=== PATIENT | male | born 1995 | race Caucasian/White ===

== ENCOUNTER 2019-06-05 12:11 | Emergency (ER) | payer MEDICAID, OTHER ==
[2019-06-05 12:27] VITALS: BP 112/65; PULSE 92; O2SAT 97
--- NOTE | 2019-06-05 12:37 | ERPHSYRPT ---
- History of Present Illness Time Seen by Provider: 06/05/19 12:30 Source: patient Exam Limitations: no limitations Patient Subjective Stated Complaint: "My right ear has been bothering me for past week and awakened this am with my ear feeling like it is blocked up". Triage Nursing Assessment: Aaox3, color good, resp easy, lungs clear, walked in. c/o right ear pain and feeling of fullness or liquid in right ear. Pt states has been using otc ear gtts. States has been using q tips also. Physician History: Blocked - muffled feeling sensation R ear X 1 Day. Timing/Duration: gradual onset (over 1 week - worsening today) Severity: moderate ENT Location: ear (R) Prearrival Treatment: no prearrival treatment Modifying Factors: Improves With: nothing Associated Symptoms: denies symptoms Allergies/Adverse Reactions: No Known Drug Allergies Allergy (Unverified 07/15/12 08:55) Hx Tetanus, Diphtheria Vaccination/Date Given: Yes Hx Influenza Vaccination/Date Given: No Hx Pneumococcal Vaccination/Date Given: No - Review of Systems Constitutional: No Symptoms Eyes: No Symptoms Ears, Nose, & Throat: Ear Pain (Right), Hearing Changes (muffled), No Ear Discharge, No Nose Congestion, No Nose Discharge, No Sinus Drainage, No Mouth Pain, No Throat Pain, No Hoarse, No Painful Swallowing Respiratory: No Symptoms All Other Systems: Reviewed and Negative - Past Medical History Pertinent Past Medical History: No Neurological History: No Pertinent History ENT History: No Pertinent History Cardiac History: No Pertinent History Respiratory History: No Pertinent History Endocrine Medical History: No Pertinent History Musculoskeletal History: Fractures GI Medical History: No Pertinent History History: No Pertinent History Psycho-Social History: No Pertinent History Male Reproductive Disorders: No Pertinent History Other Medical History: broken femur - Past Surgical History Past Surgical History: Yes Neuro Surgical History: No Pertinent History Cardiac: No Pertinent History Respiratory: No Pertinent History Gastrointestinal: No Pertinent History Genitourinary: No Pertinent History Musculoskeletal: Orthopedic Surgery Male Surgical History: No Pertinent History Other Surgical History: lt femur surgery at 4yo - Social History Smoking Status: Former smoker How long have you smoked: 4yrs Exposure to second hand smoke: Yes Drug Use: marijuana Patient Lives Alone: Yes - Nursing Vital Signs Nursing Vital Signs: Initial Vital Signs Temperature 98.0 F 06/05/19 12:20 Pulse Rate 92 H 06/05/19 12:20 Respiratory Rate 16 06/05/19 12:20 Blood Pressure 112/65 06/05/19 12:20 O2 Sat by Pulse Oximetry 97 06/05/19 12:20 Pain Scale Pain Intensity 6 - Physical Exam General Appearance: no apparent distress Eye Exam: bilateral eye: normal inspection, PERRL, EOMI Ear Exam: right ear: swelling (ext ), TM red, TM bulging, left ear: auricle normal, canal normal, TM normal Nasal Exam: normal inspection Throat Exam: normal, pharynx normal Neck Exam: normal inspection, non-tender, supple, No lymphadenopathy (R), No lymphadenopathy (L) Skin Exam: normal color, warm, dry SpO2 Interpretation: normal SpO2: 97 O2 Delivery: Room Air - Course Nursing assessment & vital signs reviewed: Yes - Departure Departure Disposition: Home Clinical Impression: Otitis media Qualifiers: Otitis media type: suppurative Chronicity: acute Laterality: right Recurrence: non-recurrent Spontaneous tympanic membrane rupture: without spontaneous rupture Qualified Code(s): H66.001 - Acute suppurative otitis media without spontaneous rupture of ear drum, right ear Condition: Good Critical Care Time: No Referrals: MARLO HENDERSON MD [Primary Care Provider] - Instructions: Ear Infections (Otitis Media) Prescriptions: Neomyc/Colist/Hydrocort/Thonzn [Cortisporin-Tc Ear Suspension] 10 ml OT QID #1 drops.susp
== END 2019-06-05 13:05 | disposition home or self-care (01) ==
LOC: ED 12:11
DX: H66.001 Acute suppurative otitis media without spontaneous rupture of ear drum, right ear (principal)
CPT/HCPCS: 99283

== ENCOUNTER 2021-04-18 22:04 | Emergency (ER) | payer MEDICAID ==
[2021-04-18] MEDS ORDERED: XYLOCAINE 1% HCL 20 ML MDV IJ ONE (22:05)
[2021-04-18 22:22] VITALS: O2SAT 99
[2021-04-18] MEDS ORDERED: ROCEPHIN 250 MG INJ IM ONE (22:35)
[2021-04-18] MEDS ORDERED: Zithromax 250 MG TABLET PO ONE (22:35)
--- NOTE | 2021-04-18 22:38 | ERPHSYRPT ---
- History of Present Illness Source: patient Exam Limitations: no limitations Patient Subjective Stated Complaint: Patient states " for about a month now I have been waking up with milky discharge at the head of my penis. It has also been burning when I finish peeing also. I also have been experiencing pain prior to having intercourse and I want to be tested for STD's." Triage Nursing Assessment: Patient arrived to ED and ambulated back to room without difficulty. Patient A/O Physician History: The patient is a 25-year-old male who reportedly is otherwise healthy presents with a chief complaint of penile discharge and dysuria. Onset reported as a month ago. He states that he notices a white milky discharge more so on pneumonia and upon waking up to urinate for the first time in the morning. He also endorsed having some dysuria intermittently for the past month as well and suprapubic abdominal pain that is since resolved. He endorsed some intermittent testicular pain but denies swelling, erythema and currently has no testicular pain now. Of note, the patient presents to the emergency department with his fiance is well. The fianc is here for vaginal bleeding and concern for and is also being evaluated for an STD. He reports that they introduced to additional sexual partners into their sex life over the past month. The patient also endorsed having anal intercourse with his fiance. He denies any hematuria, fever, chills, nausea or vomiting or any rash. Allergies/Adverse Reactions: No Known Drug Allergies Allergy (Unverified 04/18/21 22:17) Hx Tetanus, Diphtheria Vaccination/Date Given: Yes Hx Influenza Vaccination/Date Given: No Hx Pneumococcal Vaccination/Date Given: No Immunizations Up to Date: Yes Travel Risk - International Travel Have you traveled outside of the country in past 3 weeks: No - Coronavirus Screening Are you exhibiting any of the following symptoms?: No Close contact with a COVID-19 positive Pt in past 14-21 Days: No - Vaccine Status Have you recieved a Covid-19 vaccination: No - Review of Systems Constitutional: No Fever, No Chills Abdominal/Gastrointestinal: Abdominal Pain (Intermittent suprapubic abdominal pain) Genitourinary Symptoms: Dysuria, Frequency, Testicle Pain, Penile Discharge - Past Medical History Pertinent Past Medical History: No Neurological History: No Pertinent History ENT History: No Pertinent History Cardiac History: No Pertinent History Respiratory History: No Pertinent History Endocrine Medical History: No Pertinent History Musculoskeletal History: Fractures GI Medical History: No Pertinent History History: No Pertinent History Psycho-Social History: Anxiety, Depression Male Reproductive Disorders: No Pertinent History Other Medical History: broken femur - Past Surgical History Past Surgical History: Yes Neuro Surgical History: No Pertinent History Cardiac: No Pertinent History Respiratory: No Pertinent History Gastrointestinal: No Pertinent History Genitourinary: No Pertinent History Musculoskeletal: Orthopedic Surgery Male Surgical History: No Pertinent History Other Surgical History: HX Left Femur Surgery at 4yo - Social History Smoking Status: Former smoker How long have you smoked: 4yrs Exposure to second hand smoke: Yes Drug Use: marijuana Patient Lives Alone: No - Nursing Vital Signs Nursing Vital Signs: Initial Vital Signs Temperature 98.5 F 04/18/21 22:19 Pulse Rate 97 H 04/18/21 22:19 Respiratory Rate 20 04/18/21 22:19 Blood Pressure 135/88 04/18/21 22:19 O2 Sat by Pulse Oximetry 99 04/18/21 22:19 Pain Scale Pain Intensity 0 - Physical Exam General Appearance: no apparent distress Eye Exam: PERRL/EOMI, No scleral icterus Neck Exam: normal inspection, non-tender Respiratory Exam: normal breath sounds, lungs clear, airway intact, No chest tenderness, No respiratory distress Cardiovascular Exam: regular rate/rhythm, normal heart sounds, normal peripheral pulses, capillary refill <2 sec, No murmur, No friction rub, No gallop Gastrointestinal/Abdomen Exam: soft, No tenderness Male Genitalia Exam: penile discharge, other (A scant amount of mucopurulent discharge upon squeezing the penile meatus. There is no pain this ulcerative lesions or during asymmetric testicular swelling, erythema or mass and there is no tenderness upon palpation of the epididymis. Mons pubis or just to the this.), No testicular tenderness, No testicular mass, No penile lesion, No priapism Back Exam: normal inspection Extremity Exam: normal inspection Neurologic Exam: alert, oriented x 3, cooperative Skin Exam: normal color, warm SpO2 Interpretation: normal SpO2: 99 O2 Delivery: Room Air Ordered Tests: Active Orders 24 hr Category Date Time Status UA W/RFX UR CULTURE Stat Lab 04/18/21 23:47 Completed Wet Prep Stat Lab 04/18/21 22:35 Ordered Medication Summary Discontinued Medications Generic Name Dose Route Start Last Admin Trade Name Freq PRN Reason Stop Dose Admin Azithromycin 1,000 mg 04/18/21 22:35 04/18/21 23:34 Zithromax 250 Mg Tablet PO 04/18/21 22:36 1,000 mg STAT ONE Administration Azithromycin Confirm 04/18/21 23:25 Zithromax 250 Mg Tablet Administered 04/18/21 23:26 Dose 1,000 mg .ROUTE .STK-MED ONE Ceftriaxone Sodium 500 mg 04/18/21 22:35 04/18/21 23:30 Rocephin 250 Mg Inj IM 04/18/21 22:36 Not Given STAT ONE Ceftriaxone Sodium Confirm 04/18/21 23:25 Rocephin 500 Mg Inj Administered 04/18/21 23:26 Dose 500 mg .ROUTE .STK-MED ONE Ceftriaxone Sodium 500 mg 04/18/21 23:35 04/18/21 23:40 Rocephin 500 Mg Inj IM 04/18/21 23:36 500 mg STAT ONE Administration Lab/Rad Data: Laboratory Results 04/18/21 04/18/21 Range/Units 23:47 22:42 Urine Color STRAW (YELLOW) Urine Appearance CLEAR (CLEAR) Urine pH 6.0 (5-6) Ur Specific Paulina 1.014 (1.005-1.025) Urine Protein NEGATIVE (Negative) Urine Ketones NEGATIVE (NEGATIVE) Urine Blood NEGATIVE (0-5) Kodi/ul Urine Nitrite NEGATIVE (NEGATIVE) Urine Bilirubin NEGATIVE (NEGATIVE) Urine Urobilinogen NEGATIVE (0-1) mg/dL Ur Leukocyte Esterase NEGATIVE (NEGATIVE) Urine WBC (Auto) 6-10 (0-5) /HPF Urine RBC (Auto) NONE (0-2) /HPF U Epithel Cells (Auto) NONE (FEW) /HPF Urine Bacteria (Auto) NONE SEEN (NEGATIVE) /HPF Urine Mucus (Auto) SLIGHT (NEGATIVE) /HPF Urine Culture Reflexed NO (NO) Urine Glucose NEGATIVE (NEGATIVE) mg/dL Chlamydia DNA Probe DETECTED (NEGATIVE) N.gonorrhoeae DNA Probe NOT DETECTED (NEGATIVE) - Progress Progress: unchanged Progress Note: 04/19/21 00:06 I updated the patient with his work-up findings and that his GC and chlamydia is currently pending. He was also informed he would be contacted if he tested positive for gonorrhea or chlamydia. He understands that he will need to take Levaquin for the next 7 days given that he endorsed having anal intercourse and will need to be covered for enteric organisms for his diagnosis of urethritis. To follow-up with the [facility] department to undergo more comprehensive testing for STDs and blood-borne pathogens. 04/18/21 23:00 Nontoxic in appearance. The patient presents with penile discharge and dysuria with intermittent suprapubic abdominal pain and testicular pain. He had no evidence of epididymitis on his exam nor does he have any evidence of testicular torsion. His complaint and exam is consistent with urethritis and given his clinical history I am concerned that this may be due to gonorrhea, chlamydia or trichomonas. He opted to undergo empiric treatment for gonorrhea chlamydia with ceftriaxone and azithromycin last test results are pending. Anal intercourse with his fiance he will also need to be covered with Levaquin for enteric organisms for his complaint of urethritis as well. 04/19/21 01:08 The patient has been called and notified that he tested positive for chlamydia. Counseled pt/family regarding: lab results, diagnosis, need for follow-up - Departure Departure Disposition: Home Clinical Impression: Screening for STD (sexually transmitted disease), Chlamydia infection Condition: Stable Critical Care Time: No Referrals: DOCTOR,NO FAMILY [Primary Care Provider] - Instructions: Urethritis, Screening for Sexually Transmitted Infections Additional Instructions: Please avoid sexual intercourse for the next 72 hours. If you test positive for gonorrhea or chlamydia, please inform your partners so here she can undergo testing and treatment. Please use protection in the form of condoms with any future episodes of sexual intercourse. Please follow-up with the [facility] department to undergo more comprehensive testing for sexually transmitted diseases and blood-borne infections. Specific, HIV, chlamydia, and syphilis. Prescriptions: Levofloxacin [Levofloxacin 500 MG Tablet] 500 mg PO DAILY 7 Days #7 tablet
[2021-04-18] MEDS ORDERED: Rocephin 500 MG INJ ONE (23:25)
[2021-04-18] MEDS ORDERED: Zithromax 250 MG TABLET ONE (23:25)
[2021-04-18] MEDS ORDERED: Rocephin 500 MG INJ IM ONE (23:35)
[2021-04-18 23:52] LABS: Appearance CLEAR (CLEAR); Bacteria NONE SEEN /HPF (NEGATIVE); Bilirubin NEGATIVE (NEGATIVE); Blood NEGATIVE Ery/ul (0-5); Glucose NEGATIVE (NEGATIVE); Ketones NEGATIVE (NEGATIVE); Leukocyte Esterase NEGATIVE (NEGATIVE); Mucus SLIGHT /HPF (NEGATIVE); Nitrite NEGATIVE (NEGATIVE); Protein,Urine Dip NEGATIVE (Negative); Specific Gravity 1.014 (1.005-1.025); Urobilinogen NEGATIVE mg/dL (0-1)
[2021-04-19 00:15] VITALS: BP 133/79; PULSE 85
[2021-04-19 00:18] LABS: CHLAMYDIA DNA DETECTED (NEGATIVE); GC DNA Probe NOT DETECTED (NEGATIVE)
== END 2021-04-19 00:15 | disposition home or self-care (01) ==
LOC: ED 22:04
DX: Z11.3 Encounter for screening for infections with a predominantly sexual mode of transmission (principal); A74.9 Chlamydial infection, unspecified
CPT/HCPCS: 81001; 87491; 87591; 96372; 99284; J0696; A9270-GY

== ENCOUNTER 2022-03-09 20:12 | Emergency (ER) | payer OTHER ==
[2022-03-09 20:46] VITALS: BP 129/79; PULSE 104; O2SAT 98
--- NOTE | 2022-03-09 21:19 | ERPHSYRPT ---
- History of Present Illness Time Seen by Provider: 03/09/22 20:17 Source: patient Exam Limitations: no limitations Patient Subjective Stated Complaint: pt states he has had some stressful situations recently and was feeling overwhelmed and manic. states he stopped at the [facility] to see where to go to get help. states he has "dark thoughts" sometimes but denies being suicidal. Triage Nursing Assessment: pt alert and oriented, answers questions approp. pt talkative and cooperative. pt ambulatory with steady gait noted. respirations nonlabored. skin pink warm and dry. Physician History: 26-year-old with history of anxiety/depression who is off of his medication for the last few months and could not get it refilled and his symptoms are getting to the roof. Patient reports it has been really stressful lately and without medication it has been getting difficult to keep his life on track. Earlier he was driving and was having all kinds of thoughts and was feeling as if he was getting manic. He pulled into [facility] to have someone talk to him so that he can vent off, he was given all the resources for help and was recommended to be reported in the hospital otherwise he will be arrested by police. Patient reports he has plans to go to [facility] to his therapist tomorrow to get some help. Reports he has his at home and little kid home he loves a lot and does not want to . Denies any recent suicidal or homicidal ideations. Does not feel dark in near future. Thinks things will get better if he is back on his medications. Denies alcohol or drug use. Timing/Duration: week(s), gradual onset, worse Severity of Symptoms-Max: moderate Severity of Symptoms-Current: moderate Associated Symptoms: anxiety, depressed, frustrated, No hostile, No ingestion, No paranoid, No suicidal ideation Previous symptoms: same symptoms as today Allergies/Adverse Reactions: No Known Drug Allergies Allergy (Verified 03/09/22 20:46) Hx Tetanus, Diphtheria Vaccination/Date Given: Yes Hx Influenza Vaccination/Date Given: No Hx Pneumococcal Vaccination/Date Given: No Immunizations Up to Date: Yes Travel Risk - International Travel Have you traveled outside of the country in past 3 weeks: No - Coronavirus Screening Are you exhibiting any of the following symptoms?: No Close contact with a COVID-19 positive Pt in past 14-21 Days: No - Vaccine Status Have you recieved a Covid-19 vaccination: No - Past Medical History Pertinent Past Medical History: No Neurological History: No Pertinent History ENT History: No Pertinent History Cardiac History: No Pertinent History Respiratory History: No Pertinent History Endocrine Medical History: No Pertinent History Musculoskeletal History: Fractures GI Medical History: No Pertinent History History: No Pertinent History Psycho-Social History: Anxiety, Depression Male Reproductive Disorders: No Pertinent History Other Medical History: broken femur - Past Surgical History Past Surgical History: Yes Neuro Surgical History: No Pertinent History Cardiac: No Pertinent History Respiratory: No Pertinent History Gastrointestinal: No Pertinent History Genitourinary: No Pertinent History Musculoskeletal: Orthopedic Surgery Male Surgical History: No Pertinent History Other Surgical History: HX Left Femur Surgery at 4yo - Social History Smoking Status: Former smoker How long have you smoked: 4yrs Exposure to second hand smoke: No Drug Use: marijuana Patient Lives Alone: No - Review of Systems Constitutional: No Symptoms Eyes: No Symptoms Ears, Nose, & Throat: No Symptoms Respiratory: No Symptoms Cardiac: No Symptoms Abdominal/Gastrointestinal: No Symptoms Genitourinary Symptoms: No Symptoms Musculoskeletal: No Symptoms Skin: No Symptoms Neurological: No Symptoms Psychological: Anxiety, Depression, Emotional Lability, No Suicidal Ideations, No Homicidal Ideations Endocrine: No Symptoms Hematologic/Lymphatic: No Symptoms Immunological/Allergic: No Symptoms - Nursing Vital Signs Nursing Vital Signs: Initial Vital Signs Temperature 98.1 F 03/09/22 20:19 Pulse Rate 104 H 03/09/22 20:19 Respiratory Rate 16 03/09/22 20:19 Blood Pressure 129/79 03/09/22 20:19 O2 Sat by Pulse Oximetry 98 03/09/22 20:19 Pain Scale Pain Intensity 0 - Physical Exam General Appearance: no apparent distress, alert, anxiety Eyes, Ears, Nose, Throat Exam: normal ENT inspection, TMs normal Neck Exam: normal inspection, non-tender, supple, full range of motion Respiratory Exam: normal breath sounds, lungs clear Cardiovascular Exam: regular rate/rhythm, normal heart sounds Gastrointestinal/Abdominal Exam: soft, normal bowel sounds, No tenderness Extremities Exam: normal inspection, normal range of motion Current Suicidality: denies suicide plan Neurological Exam: alert, gas analyst II-XII nml as tested, oriented x 3, No normal mood/affect (Anxious) Appearance: appropriate appearance, appropriate insight, neat, no memory impairment Behavior/Eye Contact/Speech: alert & cooperative, good eye contact, normal speech Thoughts/Hallucinations: no apparent hallucination Skin Exam: normal color SpO2 Interpretation: normal SpO2: 98 O2 Delivery: Room Air Ordered Tests: Active Orders 24 hr Category Date Time Status ACETAMINOPHEN Stat Lab 03/09/22 20:46 Ordered CBC W DIFF Stat Lab 03/09/22 20:46 Ordered CMP Stat Lab 03/09/22 20:46 Ordered ETHYL ALCOHOL Stat Lab 03/09/22 20:46 Ordered SALICYLATE Stat Lab 03/09/22 20:46 Ordered UA W/RFX CULTURE Stat Lab 03/09/22 Ordered - Progress Progress: unchanged Progress Note: 03/09/22 21:21 Patient is sent in ER by police to be assessed for depressive thoughts. Patient denies suicidal ideation/plans or any homicidal ideations asked multiple times. Patient states "I have bad experience in this hospital and does not want any lab work done in here". He reports "I will follow-up at [facility] tomorrow to get things straightened out". Does not have thoughts of hopelessness, helplessness. I have counseled him about blood work and getting evaluation in here but he does not want it to be done. Discussed with patient in detail the importance of follow-up outpatient. He wants to leave AGAINST MEDICAL ADVICE and does understand that things may get worse if not taken care of them appropriately in a timely manner. Patient is not confused altar or under influence, signed AMA papers and left hospital in a stable condition. Counseled pt/family regarding: diagnosis, need for follow-up - Departure Departure Disposition: AMA Clinical Impression: Depressive disorder Condition: Stable Critical Care Time: No Referrals: DOCTOR,NO FAMILY [Primary Care Provider] - Follow up/PCP as directed Instructions: Bipolar Disorder (DC) Additional Instructions: Follow-up at [facility] tomorrow for reevaluation. Stay with responsible person and return to ER or call 911 if having suicidal/homicidal ideation, worsening of depressive thoughts are having thoughts of hopelessness/helplessness etc.
[2022-03-09] MEDS ORDERED: PROTONIX 40 MG IV IV ONE (21:28)
== END 2022-03-09 21:34 | disposition left against medical advice (07) ==
LOC: ED 20:12
DX: F32.A Depression, unspecified (principal)
CPT/HCPCS: 99283